=== PATIENT | male | born 1995 | race Two or more races ===

== ENCOUNTER 2016-06-24 20:05 | Emergency (ER) | payer OTHER ==
[2016-06-24 20:18] VITALS: BP 125/83; PULSE 91; RESP 16; TEMP 98.1; O2SAT 95
[2016-06-24] MEDS ORDERED: ACETAMINOPHEN/CODEINE 300/30MG TAB PO ONE (20:34)
[2016-06-24] MEDS ORDERED: AZITHROMYCIN 250 MG TAB PO ONE (20:35)
--- NOTE | 2016-06-24 20:38 | EDPHY ---
H & P Stated Complaint: 2weeks cough, ST, vomiting-seen [place]-inhaler. Time Seen by Provider: 06/24/16 20:29 HPI/ROS: CHIEF COMPLAINT: The cough HISTORY OF PRESENT ILLNESS: Patient is a 21-year-old man who comes to the emergency department complaining of a cough for the last 2 weeks and now bloody tinged sputum. He has not been traveling. He has not had a fever. His symptoms began as a sinus congestion and sore throat. He did have a fever last week but does not now. No difficulty breathing. He has been using an old inhaler with some improvement. He denies history of asthma respiratory disorder. REVIEW OF SYSTEMS: Constitutional: denies: chills, fever, recent illness, recent injury EENTM: denies: blurred vision, double vision, nose congestion Respiratory: See HPI Cardiac: denies: chest pain, irregular heart rate, lightheadedness, palpitations Gastrointestinal/Abdominal: denies: abdominal pain, diarrhea, nausea, vomiting, blood streaked stools Genitourinary: denies: dysuria, frequency, hematuria, pain Musculoskeletal: denies: joint pain, muscle pain Skin: denies: lesions, rash, jaundice, bruising Neurological: denies: headache, numbness, paresthesia, tingling, dizziness, weakness Hematologic/Lymphatic: denies: blood clots, easy bleeding, easy bruising Immunologic/allergic: denies: HIV/AIDS, transplant EXAM: GENERAL: Well-appearing, well-nourished and in no acute distress. HEAD: Atraumatic, normocephalic. EYES: Pupils equal round and reactive to light, extraocular movements intact, sclera anicteric, conjunctiva are normal. ENT: TMs normal, sinus congestion, erythematous pharynx, no exudate . Moist mucous membranes. NECK: Normal range of motion, supple without lymphadenopathy or JVD. LUNGS: Breath sounds clear to auscultation bilaterally and equal. No wheezes rales or rhonchi. HEART: Regular rate and rhythm without murmurs, rubs or gallops. ABDOMEN: Soft, nontender, normoactive bowel sounds. No guarding, no rebound. No masses appreciated. BACK: No CVA tenderness, no spinal tenderness, step-offs or deformities EXTREMITIES: Normal range of motion, no pitting or edema. No clubbing or cyanosis. NEUROLOGICAL: Cranial nerves II through XII grossly intact. Normal speech, normal gait. 5/5 strength, normal movement in all extremities, normal sensation PSYCH: Normal mood, normal affect. SKIN: Warm, dry, normal turgor, no visible rashes or lesions. Source: Patient Exam Limitations: No limitations - Personal History Current Tetanus/Diphtheria Vaccine: Unsure Current Tetanus Diphtheria and Acellular Pertussis (TDAP): Unsure - Medical/Surgical History Hx Asthma: No Hx Chronic Respiratory Disease: No Hx Diabetes: No Hx Cardiac Disease: No Hx Renal Disease: No Hx Cirrhosis: No Hx Alcoholism: No Hx HIV/AIDS: No Hx Splenectomy or Spleen Trauma: No Other PMH: Denies. - Family History Significant Family History: No pertinent family hx - Social History Smoking Status: Former smoker Alcohol Use: Sober Drug Use: None Constitutional: Initial Vital Signs Temperature (C) 36.7 C 06/24/16 20:14 Heart Rate 91 06/24/16 20:14 Respiratory Rate 16 06/24/16 20:14 Blood Pressure 125/83 H 06/24/16 20:14 O2 Sat (%) 95 06/24/16 20:14 O2 Delivery Mode Room Air Allergies/Adverse Reactions: chlorpheniramine maleate [From Triaminic Cold and Cough] Allergy (Severe, Verified 06/24/16 20:18) Swelling/neck,face,throat dextromethorphan HBr [From Triaminic Cold and Cough] Allergy (Severe, Verified 06/24/16 20:18) Swelling/neck,face,throat pseudoephedrine HCl [From Triaminic Cold and Cough] Allergy (Severe, Verified 20:18) Swelling/neck,face,throat Home Medications: Medication Instructions Recorded ALBUTEROL SULFATE 06/24/16 AZITHROMYCIN [Z-PACK] 250 mg PO DAILY #4 tab 06/24/16 Acetaminophen/Codeine 300/30Mg 1 - 2 each PO Q6 PRN #14 tab 06/24/16 [Tylenol #3 (RX)] DAY TIME COLD & FLU RELIEF LIQ 06/24/16 Mucinex 06/24/16 Medical Decision Making ED Course/Re-evaluation: The patient is well appearing. He has a cough and sinus infection for greater than 2 weeks. Will treat him with azithromycin and cough suppressant. He agrees with this plan. He declines further workup or testing at this time. We discussed indications for returning. Differential Diagnosis: Partial list of the Differential diagnosis considered include but were not limited to; bronchitis, upper respiratory tract infection, pharyngitis, and although unlikely based on the history and physical exam, I also considered pertussis, pneumonia, sepsis. - Data Points Medications Given: Discontinued Medications Acetaminophen/Codeine Phosphate (Tylenol #3) 2 tab PO EDNOW ONE Stop: 06/24/16 20:35 Last Admin: 06/24/16 20:46 Dose: 2 tab Azithromycin (Zithromax) 500 mg PO EDNOW ONE PRN Reason: Protocol Stop: 06/24/16 20:36 Last Admin: 06/24/16 20:45 Dose: 500 mg Departure - Departure Disposition: Home, Routine, Self-Care Clinical Impression: Acute bronchitis Qualifiers: Bronchitis organism: unspecified organism Qualified Code(s): J20.9 - Acute bronchitis, unspecified Condition: Fair Instructions: Acetaminophen/Codeine (By mouth), Acute Bronchitis (ED) Referrals: ALEYDA MONTESINOS MD [Other] - As per Instructions Prescriptions: Acetaminophen/Codeine 300/30Mg [Tylenol #3 (RX)] 1 - 2 each PO Q6 PRN #14 tab PRN Reason: *Cough AZITHROMYCIN [Z-PACK] 250 mg PO DAILY #4 tab
== END 2016-06-24 20:45 | disposition home or self-care (01) ==
DX: J20.9 Acute bronchitis, unspecified (principal); Z87.891 Personal history of nicotine dependence

== ENCOUNTER 2016-08-05 21:18 | Emergency (ER) | payer OTHER ==
[2016-08-05 21:22] VITALS: BP 114/74; PULSE 105; RESP 18; TEMP 97.7; O2SAT 97
[2016-08-05] MEDS ORDERED: LIDOCAINE 2% JELLY 5 ML TUBE TP ONE (22:07)
--- NOTE | 2016-08-05 22:11 | EDPHY ---
H & P Stated Complaint: abd pain and diarrhea, started last night Time Seen by Provider: 08/05/16 21:54 HPI/ROS: CHIEF COMPLAINT: Diarrhea, Rectal pain HISTORY OF PRESENT ILLNESS: The patient is a 21-year-old man who comes to the emergency department complaining of diarrhea for 24 hours and now more formed stools but pain in his rectum with defecation. He also noticed small amounts of red blood on his stool. He has had some abdominal cramping. No fever, no vomiting. No testicular pain. No significant past medical history REVIEW OF SYSTEMS: Constitutional: denies: chills, fever, recent illness, recent injury EENTM: denies: blurred vision, double vision, nose congestion Respiratory: denies: cough, shortness of breath Cardiac: denies: chest pain, irregular heart rate, lightheadedness, palpitations Gastrointestinal/Abdominal: See HPI Genitourinary: denies: dysuria, frequency, hematuria, pain Musculoskeletal: denies: joint pain, muscle pain Skin: denies: lesions, rash, jaundice, bruising Neurological: denies: headache, numbness, paresthesia, tingling, dizziness, weakness Hematologic/Lymphatic: denies: blood clots, easy bleeding, easy bruising Immunologic/allergic: denies: HIV/AIDS, transplant EXAM: GENERAL: Well-appearing, well-nourished and in no acute distress. HEAD: Atraumatic, normocephalic. EYES: Pupils equal round and reactive to light, extraocular movements intact, sclera anicteric, conjunctiva are normal. ENT: TMs normal, nares patent, oropharynx clear without exudates. Moist mucous membranes. NECK: Normal range of motion, supple without lymphadenopathy or JVD. LUNGS: Breath sounds clear to auscultation bilaterally and equal. No wheezes rales or rhonchi. HEART: Regular rate and rhythm without murmurs, rubs or gallops. ABDOMEN: Soft, nontender, normoactive bowel sounds. No guarding, no rebound. No masses appreciated. : Patient has a small rectal fissure is very tender rectal examination, heme- negative. BACK: No CVA tenderness, no spinal tenderness, step-offs or deformities EXTREMITIES: Normal range of motion, no pitting or edema. No clubbing or cyanosis. NEUROLOGICAL: Cranial nerves II through XII grossly intact. Normal speech, normal gait. 5/5 strength, normal movement in all extremities, normal sensation PSYCH: Normal mood, normal affect. SKIN: Warm, dry, normal turgor, no visible rashes or lesions. Source: Patient Exam Limitations: No limitations - Personal History Current Tetanus/Diphtheria Vaccine: Unsure Current Tetanus Diphtheria and Acellular Pertussis (TDAP): Unsure - Medical/Surgical History Hx Asthma: No Hx Chronic Respiratory Disease: No Hx Diabetes: No Hx Cardiac Disease: No Hx Renal Disease: No Hx Cirrhosis: No Hx Alcoholism: No Hx HIV/AIDS: No Hx Splenectomy or Spleen Trauma: No Other PMH: Denies. - Family History Significant Family History: No pertinent family hx - Social History Smoking Status: Former smoker Alcohol Use: Sober Drug Use: None Constitutional: Initial Vital Signs Temperature (C) 36.5 C 08/05/16 21:20 Heart Rate 105 H 08/05/16 21:20 Respiratory Rate 18 08/05/16 21:20 Blood Pressure 114/74 08/05/16 21:20 O2 Sat (%) 97 08/05/16 21:20 O2 Delivery Mode Room Air Allergies/Adverse Reactions: chlorpheniramine maleate [From Triaminic Cold and Cough] Allergy (Severe, Verified 08/05/16 21:22) Swelling/neck,face,throat dextromethorphan HBr [From Triaminic Cold and Cough] Allergy (Severe, Verified 08/05/16 21:22) Swelling/neck,face,throat pseudoephedrine HCl [From Triaminic Cold and Cough] Allergy (Severe, Verified 21:22) Swelling/neck,face,throat Home Medications: Medication Instructions Recorded Lidocaine 2% Jelly [Lidocaine 2% 1 ml AZ TID #1 tube 08/05/16 Jelly 30 gm] Medical Decision Making ED Course/Re-evaluation: The patient has a rectal fissure on exam. His rectum is very tender with digital exam. No blood within the rectal vault. His abdominal exam is benign. I will treat with lidocaine jelly. I encouraged the patient to return in 12- 24 hours if his symptoms worsen or if he does fever or increased pain. He understands and agrees with this plan. Differential Diagnosis: Partial list of the Differential diagnosis considered include but were not limited to; rectal fissure, hemorrhoid, diverticulitis, appendicitis and although unlikely based on the history and physical exam, I also considered biliary disease, pancreatitis, obstruction, ischemia. I discussed these differential diagnoses and the plan with the patient as well as the usual and expected course. The patient understands that the diagnosis is provisional and that in medicine we are not always correct and that further workup is often warranted. Usual and customary warnings were given. All of the patient's questions were answered. The patient was instructed to return to the emergency department should the symptoms at all worsen or return, otherwise to followup with the physician as we discussed. - Data Points Medications Given: Discontinued Medications Lidocaine (Lidocaine 2% Jelly) 1 lenin TP EDNOW ONE Stop: 08/05/16 22:08 Last Admin: 08/05/16 22:21 Dose: 1 tub Departure - Departure Disposition: Home, Routine, Self-Care Clinical Impression: Rectal fissure Condition: Fair Instructions: Rectal Bleeding (ED) Referrals: ALEYDA MONTESINOS MD [Other] - As per Instructions Stand Alone Forms: School Excuse Prescriptions: Lidocaine 2% Jelly [Lidocaine 2% Jelly 30 gm] 1 ml AZ TID #1 tube
== END 2016-08-05 22:29 | disposition home or self-care (01) ==
DX: K60.0 Acute anal fissure (principal); Z87.891 Personal history of nicotine dependence